=== PATIENT | female | born 1965 | race Caucasian/White ===

== ENCOUNTER 2017-09-11 18:12 | Emergency (ER) | payer MEDICAID ==
[~2017-09-11] VITALS: Ht 160 cm; Wt 62.0 kg
[2017-09-11 20:20] VITALS: BP 103/68
== END 2017-09-11 20:30 | disposition home or self-care (01) ==
LOC: ER 18:49
DX: B34.9 Viral infection, unspecified (principal)
CPT/HCPCS: 99282